=== PATIENT | male | born 1960 | race Caucasian/White ===

== ENCOUNTER → 2023-05-14 | Outpatient (REF) | payer BC ==
[~2023-05-14] MED LIST: BENICAR HCT 401 EAC1 PO; GLUCOVANCE 5-51 EACH PO; JANUVIA100 MG PO; TESTOSTERONE INJ IM
== END ==
LOC: RAD 10:44
PROVIDERS: ATTEND Family Medicine
DX: R94.31 Abnormal electrocardiogram [ECG] [EKG] (principal)
CPT/HCPCS: 93306